=== PATIENT | female | born 1945 | race Caucasian/White ===

== ENCOUNTER → 2017-12-19 | Outpatient (CLI) | payer MEDICARE, BC | END | disposition home or self-care (01) | LOC: HKI 10:45 | DX: M25.561 Pain in right knee (principal); M17.11 Unilateral primary osteoarthritis, right knee | CPT/HCPCS: 20610; 73564-50 ==

== ENCOUNTER → 2018-01-30 | Outpatient (CLI) | payer MEDICARE, BC | END | disposition home or self-care (01) | LOC: HKI 10:25 | DX: M17.11 Unilateral primary osteoarthritis, right knee (principal) | CPT/HCPCS: G0463 ==

== ENCOUNTER → 2018-02-27 | Outpatient (CLI) | payer MEDICARE, BC | END | disposition home or self-care (01) | LOC: HKI 11:17 | DX: M17.11 Unilateral primary osteoarthritis, right knee (principal) | CPT/HCPCS: G0463 ==

== ENCOUNTER → 2018-03-17 | Outpatient (CLI) | payer MEDICARE, BC | END | disposition home or self-care (01) | LOC: HKI 13:32 | DX: Z01.818 Encounter for other preprocedural examination (principal); M17.11 Unilateral primary osteoarthritis, right knee | CPT/HCPCS: 77073 ==

== ENCOUNTER → 2018-03-17 | Outpatient (CLI) | payer MEDICARE, BC | END | disposition home or self-care (01) | LOC: LAB 08:00 | DX: Z01.818 Encounter for other preprocedural examination (principal); Z11.2 Encounter for screening for other bacterial diseases ==

== ENCOUNTER → 2018-07-14 | Outpatient (CLI) | payer MEDICARE, BC | END | disposition home or self-care (01) | LOC: HKI 09:24 | DX: M17.11 Unilateral primary osteoarthritis, right knee (principal); D47.3 Essential (hemorrhagic) thrombocythemia | CPT/HCPCS: G0463 ==

== ENCOUNTER → 2018-08-28 | Outpatient (CLI) | payer MEDICARE, BC | END | disposition home or self-care (01) | LOC: HKI 13:32 | DX: M17.11 Unilateral primary osteoarthritis, right knee (principal) | CPT/HCPCS: 73564 ==

== ENCOUNTER 2018-09-02 05:39 | Observation (INO) | payer MEDICARE, BC ==
[~2018-09-02 05:39] MED LIST: ACETAMINOPHEN 500 MG TAB PO; CEFAZOLIN 2 GM/50 ML (PMX) 50 ML IVPB; CELECOXIB 200 MG CAP PO; DEXAMETHASONE 4 MG/ML 1 ML INJ IV; LACTATED RINGER'S 1,000 ML IV*; LANSOPRAZOLE 30 MG CAP PO; ONDANSETRON 4 MG INJ IV; TRANEXAMIC ACID 1,000 MG in SOD CHLORIDE 0.9% 100 ML IVPB
[2018-09-02] MEDS: LANSOPRAZOLE 30 MG CAP PO (07:00)
[2018-09-02] MEDS ORDERED: ACETAMINOPHEN 500 MG TAB PO (07:00)
[2018-09-02] MEDS: CELECOXIB 200 MG CAP PO (07:00)
[2018-09-02] MEDS: ACETAMINOPHEN 1000MG/100ML IV 100 ML IVPB (07:01)
[2018-09-02] MEDS: ONDANSETRON 4 MG INJ IV (07:02)
[2018-09-02] MEDS: DEXAMETHASONE 4 MG/ML 5 ML INJ IV (07:04)
[2018-09-02] MEDS ORDERED: SEVOFLURANE 15 MIN (07:30)
[2018-09-02] MEDS ORDERED: LIDOCAINE 2% (SDV) 5 ML INJ (07:33)
[2018-09-02] MEDS ORDERED: PROPOFOL 20 ML (07:33)
[2018-09-02] MEDS ORDERED: FENTAnyl 50 MCG/ML VIAL (07:34)
[2018-09-02] MEDS ORDERED: MIDAZOLAM 1 MG/ML 2 ML INJ (07:34)
[2018-09-02] MEDS ORDERED: CEFAZOLIN 1 GM INJ (07:48)
[2018-09-02] MEDS ORDERED: FAMOTIDINE 20 MG INJ (07:54)
[2018-09-02] MEDS ORDERED: ONDANSETRON 4 MG INJ (07:54)
[2018-09-02] MEDS ORDERED: DEXAMETHASONE 4 MG/ML 5 ML INJ (07:54)
[2018-09-02] MEDS ORDERED: EPHEDrine 25 MG/5 ML SYG (08:09)
[2018-09-02] MEDS: TRANEXAMIC ACID 1GM/100ML(PMX) 100 ML IVPB ×3 (08:32→13:00)
[2018-09-02] MEDS: TRANEXAMIC ACID 1GM/100ML(PMX) 100 ML (08:32)
[2018-09-02] MEDS ORDERED: ROPIVACAINE 0.2% 20 ML VIAL (10:44)
[2018-09-02] MEDS ORDERED: PROCHLORPERAZINE 10 MG INJ IV (11:00)
[2018-09-02] MEDS ORDERED: HYDROmorphONE 1 MG/5 ML IV SYRINGE IV ×2 (11:00)
[2018-09-02] MEDS ORDERED: FENTAnyl 50 MCG/ML VIAL IV (11:00)
[2018-09-02] MEDS ORDERED: ONDANSETRON 4 MG INJ IV (11:00)
[2018-09-02] MEDS ORDERED: MEPERIDINE 25 MG INJ IV (11:00)
[2018-09-02] MEDS ORDERED: DIPHENHYDRAMINE 50 MG INJ IV ×2 (11:00→11:30)
[2018-09-02] MEDS: LACTATED RINGER'S 1,000 ML IV ×2 (11:26→13:05)
[2018-09-02] MEDS ORDERED: oxyCODONE 5 MG TAB PO ×2 (11:30)
[2018-09-02] MEDS ORDERED: BISACODYL 10 MG SUPP PR (11:30)
[2018-09-02] MEDS ORDERED: NALOXONE (0.4 MG/ML) INJ IV (11:30)
[2018-09-02] MEDS ORDERED: NA PHOSPHATE/BIPHOS 133 ML ENEMA PR (11:30)
[2018-09-02] MEDS ORDERED: SENNA/DOCUSATE NA (8.6MG/50MG) TAB PO (11:30)
[2018-09-02] MEDS ORDERED: MAGNESIUM HYDROXIDE 30ML CUP PO (11:30)
[2018-09-02] MEDS ORDERED: NACL 0.9% 3 ML SYG IV (11:30)
[2018-09-02] MEDS ORDERED: BETHANECHOL 25 MG TAB PO (11:30)
[2018-09-02] MEDS: DOCUSATE SODIUM 100 MG CAP PO (12:06)
[2018-09-02] MEDS ORDERED: TRANEXAMIC ACID 1GM/100ML(PMX) 100 ML (12:12)
[2018-09-02] MEDS: CEFAZOLIN 2 GM/50 ML (PMX) 50 ML IVPB ×3 (12:20→22:10)
[2018-09-02] MEDS ORDERED: ALPRAZOLAM 0.25 MG TAB PO (13:00)
[2018-09-02] MEDS: ACETAMINOPHEN 500 MG TAB PO ×2 (14:45→22:10)
[2018-09-02] MEDS: PANTOPRAZOLE (EC) 40 MG TAB PO (18:29)
[2018-09-02] MEDS: oxyCODONE 5 MG TAB PO (18:30)
[2018-09-02] MEDS: GABAPENTIN 300 MG CAP PO (20:26)
[2018-09-02] MEDS: CALCIUM CARBONATE 1.25 GM TAB PO (20:26)
[2018-09-02] MEDS: ASCORBIC ACID 500 MG TAB PO (20:27)
[2018-09-02] MEDS: ZOLPIDEM 5 MG TAB PO (22:10)
[2018-09-03] MEDS: oxyCODONE 5 MG TAB PO ×2 (04:14→07:57)
[2018-09-03] MEDS: ACETAMINOPHEN 500 MG TAB PO ×2 (05:02→13:54)
[2018-09-03] MEDS: PANTOPRAZOLE (EC) 40 MG TAB PO (05:02)
[2018-09-03] MEDS: CEFAZOLIN 2 GM/50 ML (PMX) 50 ML IVPB (05:02)
[2018-09-03 05:23] LABS: ADD MAN DIFF? NO
[2018-09-03 05:34] LABS: BASOPHILS % 0.2 % (0.0-2.0); EOSINOPHILS % 0.2 % (0.0-7.0); HEMATOCRIT 36.3 % (37.0-47.0); HEMOGLOBIN 11.6 g/dl (12.0-16.0); LYMPHOCYTES # 1.3 10^3/ul (0.8-2.9); LYMPHOCYTES % 9.1 % (15.0-51.0); MEAN CORPUSCULAR HEMOGLOBIN 30.1 pg (29.0-33.0); MEAN PLATELET VOLUME 10.2 fl (7.4-10.4); MONOCYTE # 1.1 10^3/ul (0.3-0.9); MONOCYTES % 7.5 % (0.0-11.0); NEUTROPHIL # 11.7 10^3/ul (1.6-7.5); NEUTROPHILS % 82.4 % (39.0-77.0); PLATELET COUNT 445 10^3/UL (140-415); RED BLOOD COUNT 3.86 10^6/ul (4.20-5.40); RED CELL DISTRIBUTION WIDTH 16.6 % (11.5-14.5)
[2018-09-03 05:34] LABS: WHITE BLOOD COUNT 14.2 10^3/ul (4.8-10.8)
[2018-09-03 05:42] LABS: ANION GAP 4 (5-13); BLOOD UREA NITROGEN 15 mg/dl (7-20); CALCIUM 9.1 mg/dl (8.4-10.2); CARBON DIOXIDE 29 mmol/L (21-31); CHLORIDE 106 mmol/L (97-110); CREATININE 0.91 mg/dl (0.44-1.00); GLUCOSE 95 mg/dl (70-220); POTASSIUM 4.1 mmol/L (3.5-5.1); SODIUM 139 mmol/L (135-144)
[2018-09-03 06:17] LABS: ADD UMIC NO; UR ASCORBIC ACID 40 mg/dL (NEGATIVE); UR BILIRUBIN (Dip) NEGATIVE (NEGATIVE); UR BLOOD (Dip) NEGATIVE (NEGATIVE); UR CLARITY CLEAR (CLEAR); UR COLOR YELLOW (YELLOW); UR GLUCOSE (Dip) NEGATIVE (NEGATIVE); UR KETONES (Dip) NEGATIVE (NEGATIVE); UR LEUKOCYTE ESTERASE (Dip) NEGATIVE Leu/ul (NEGATIVE); UR NITRITE (Dip) NEGATIVE (NEGATIVE); UR SPECIFIC GRAVITY (Dip) 1.013 (1.003-1.030); UR TOTAL PROTEIN (Dip) NEGATIVE (NEGATIVE); UR UROBILINOGEN (Dip) NEGATIVE (NEGATIVE)
[2018-09-03] MEDS: DEXAMETHASONE 10 MG/ML 1 ML INJ IV (08:03)
[2018-09-03] MEDS ORDERED: ASPIRIN (EC) 81 MG TAB PO (09:00)
[2018-09-03] MEDS: ASPIRIN (EC) 81 MG TAB PO (09:20)
[2018-09-03] MEDS: HYDROmorphONE 1 MG/ML SYG IV (09:20)
[2018-09-03] MEDS: MULTIVITAMINS THERAPEUTIC TAB PO (09:20)
[2018-09-03] MEDS: CALCIUM CARBONATE 1.25 GM TAB PO (09:21)
[2018-09-03] MEDS: ASCORBIC ACID 500 MG TAB PO (09:21)
[2018-09-03] MEDS: PAROXETINE 10 MG TAB PO (09:21)
[2018-09-03] MEDS: DOCUSATE SODIUM 100 MG CAP PO (09:59)
[2018-09-03] MEDS: KETOROLAC 15 MG INJ IV (11:06)
[2018-09-03] MEDS ORDERED: ONDANSETRON 4 MG INJ IV (11:30)
[2018-09-04] MEDS ORDERED: PANTOPRAZOLE (EC) 40 MG TAB PO (06:00)
== END 2018-09-03 15:41 | disposition home or self-care (01) ==
LOC: REC 05:39 → MS1 12:49 → REC 12:49 → MS1 12:49
DX: M17.11 Unilateral primary osteoarthritis, right knee (principal); F41.9 Anxiety disorder, unspecified; K21.9 Gastro-esophageal reflux disease without esophagitis
CPT/HCPCS: 27447; 73560; 80048; 81003; 85025; 86850; 86900; 86901; 87081; 87086; 88304; 88311; 97110; 97116; 97161; 97165; 99217

== ENCOUNTER → 2018-09-17 | Outpatient (CLI) | payer MEDICARE, BC | END | disposition home or self-care (01) | LOC: HKI 10:28 | DX: Z47.1 Aftercare following joint replacement surgery (principal); Z96.651 Presence of right artificial knee joint | CPT/HCPCS: 73562; 73562-50 ==